=== PATIENT | male | born 1935 | race Caucasian/White ===

== ENCOUNTER → 2021-06-19 08:40 | Outpatient (BNVA) | payer MEDICARE, SELFPAY | PROVIDERS: PCP Nurse Practitioner Family; Visit Provider Urology | DX: N40.0 Benign prostatic hyperplasia without lower urinary tract symptoms (principal); R97.20 Elevated prostate specific antigen [PSA]; R35.1 Nocturia | CPT/HCPCS: 51798; 99212 ==

== ENCOUNTER 2021-09-29 10:52 | Outpatient (REF) | payer MEDICARE, SELFPAY ==
--- NOTE | ~2021-09-29 | US_ITS ---
EXAMINATION: US PELVIS LIMITED (BLADDER) CLINICAL INFORMATION: Poor urinary stream. COMPARISON: CT abdomen and pelvis 05/02/2013 TECHNIQUE: Real-time imaging of the bladder. FINDINGS: BLADDER: Well distended and normal. Bilateral ureteral jets are demonstrated. Prevoid bladder volume is 161.7 mL. Postvoid bladder volume is 8.5 mL. PROSTATE: The prostate is lobulated and slightly heterogeneous with volume measuring 42.0 mL. US/US bladder IMPRESSION: Heterogeneous prostate gland with mild enlargement. Small postvoid residual bladder volume measuring 8.5 mL.
== END 2021-09-29 10:53 | disposition home or self-care (01) ==
LOC: HO.US 10:52
PROVIDERS: PCP Nurse Practitioner Family; Visit Provider Urology
DX: R39.12 Poor urinary stream (principal); N40.0 Benign prostatic hyperplasia without lower urinary tract symptoms
CPT/HCPCS: 76857

== ENCOUNTER 2021-10-12 11:36 | Outpatient (REF) | payer MEDICARE, SELFPAY ==
[2021-10-12 14:24] LABS: PSA,Total (Free>4and<10) 5.09 ng/mL (0.00-4.00)
[2021-10-13 12:41] LABS: Free Prostate Spec Ag 0.8 ng/mL; Percent Free Prostate Spec Ag 17 % (calc) (>25); Prostate Specific Ag Total 4.7 ng/mL (< OR = 4.0)
== END 2021-10-12 11:37 | disposition home or self-care (01) ==
LOC: HO.10HDL 11:36
PROVIDERS: Visit Provider Urology
DX: N40.0 Benign prostatic hyperplasia without lower urinary tract symptoms (principal); Z12.5 Encounter for screening for malignant neoplasm of prostate
CPT/HCPCS: 36415; 84153; 84154

== ENCOUNTER → 2021-10-20 08:16 | Outpatient (BNVA) | payer MEDICARE, SELFPAY | PROVIDERS: PCP Nurse Practitioner Family; Visit Provider Urology | DX: R97.20 Elevated prostate specific antigen [PSA] (principal); R35.1 Nocturia; N40.0 Benign prostatic hyperplasia without lower urinary tract symptoms | CPT/HCPCS: Q3014 ==

== ENCOUNTER → 2022-04-20 08:04 | Outpatient (BNVA) | payer MEDICARE, OTHER, SELFPAY | PROVIDERS: PCP Nurse Practitioner Family; Visit Provider Urology | DX: N40.1 Benign prostatic hyperplasia with lower urinary tract symptoms (principal); N13.8 Other obstructive and reflux uropathy; R97.20 Elevated prostate specific antigen [PSA]; N52.9 Male erectile dysfunction, unspecified; Z79.899 Other long term (current) drug therapy | CPT/HCPCS: Q3014 ==

== ENCOUNTER 2022-10-08 11:30 | Outpatient (REF) | payer MEDICARE, OTHER, SELFPAY ==
[2022-10-08 14:30] LABS: PSA,Total (Free>4and<10) 3.21 ng/mL (0.00-4.00)
== END 2022-10-08 11:31 | disposition home or self-care (01) ==
LOC: HO.10HDL 11:30
PROVIDERS: Visit Provider Urology
DX: Z12.5 Encounter for screening for malignant neoplasm of prostate (principal); N13.8 Other obstructive and reflux uropathy; N40.1 Benign prostatic hyperplasia with lower urinary tract symptoms; R97.20 Elevated prostate specific antigen [PSA]
CPT/HCPCS: 36415; 84153

== ENCOUNTER → 2022-10-19 10:00 | Outpatient (BNVA) | payer MEDICARE, OTHER, SELFPAY | PROVIDERS: PCP Nurse Practitioner Family; Visit Provider Urology | DX: R97.20 Elevated prostate specific antigen [PSA] (principal); N40.1 Benign prostatic hyperplasia with lower urinary tract symptoms; R35.1 Nocturia; N52.9 Male erectile dysfunction, unspecified; Z79.899 Other long term (current) drug therapy | CPT/HCPCS: Q3014 ==

== ENCOUNTER 2023-04-18 11:16 | Outpatient (REF) | payer MEDICARE, OTHER, SELFPAY ==
[2023-04-18 12:58] LABS: Prostate Specific Antigen 3.82 ng/mL (<0.05-4.0)
== END 2023-04-18 11:17 | disposition home or self-care (01) ==
LOC: HO.LAB 11:16
PROVIDERS: PCP Nurse Practitioner Family; Visit Provider Urology
DX: R97.20 Elevated prostate specific antigen [PSA] (principal); Z12.5 Encounter for screening for malignant neoplasm of prostate
CPT/HCPCS: 36415; 84153

== ENCOUNTER → 2023-04-20 15:31 | Outpatient (BNVA) | payer MEDICARE, OTHER, SELFPAY | PROVIDERS: PCP Nurse Practitioner Family; Visit Provider Urology | DX: N40.0 Benign prostatic hyperplasia without lower urinary tract symptoms (principal); N52.9 Male erectile dysfunction, unspecified; R97.20 Elevated prostate specific antigen [PSA]; R35.1 Nocturia; Z79.899 Other long term (current) drug therapy | CPT/HCPCS: 51798; 99212 ==

== ENCOUNTER 2023-10-03 11:57 | Outpatient (REF) | payer MEDICARE, OTHER, SELFPAY ==
[2023-10-03 14:28] LABS: Prostate Specific Antigen 3.92 ng/mL (<0.05-4.0)
== END 2023-10-03 11:58 | disposition home or self-care (01) ==
LOC: HO.10HDL 11:57
PROVIDERS: Visit Provider Urology
DX: N40.0 Benign prostatic hyperplasia without lower urinary tract symptoms (principal); Z12.5 Encounter for screening for malignant neoplasm of prostate
CPT/HCPCS: 36415; 84153

== ENCOUNTER 2023-10-20 08:30 | Outpatient (AMB) | payer MEDICARE, OTHER, SELFPAY ==
--- NOTE | 2023-10-20 08:32 | MHC.OFFVIS ---
Intake Intake Visit Reasons: 6m/PSA(set) Intake Note: Patient is Present for Telephone Follow Up PSA Urology Med: Finasteride, Tadalafil Antibiotic Allergy: None Blood Thinner: None Allergies No Known Allergies Allergy (Verified 10/19/22 10:01) Medication List - Last Reconciled 10/20/23 by Juan Camilo MD finasteride 5 mg PO DAILY 90 days hydrochlorothiazide 12.5 mg PO DAILY ketorolac 0.5% 1 drp ophthalmic-Right BID lisinopril 40 mg PO DAILY simvastatin 20 mg PO BEDTIME sodium fluoride-pot nitrate 1.1-5 % (PreviDent 5000 Sensitive) PO DIRECTED tadalafil (Cialis) 20 mg PO DAILY PRN timolol maleate 0.5% 0 drps ophthalmic (eye) HPI HPI Comments History of Present Illness Details Jose is a pleasant male. He is a patient of Dr. Mcarthur. He is seen for the following urologic conditions - BPH - erectile dysfunction - elevated PSA Telemedicine Evaluation 15 min Consultation [employer] Video attempted Continue good response to finasteride Minimal side effects at 3 times per week PSA continue slow fall on Tuesday, Tuesday, Tuesday Slow PSA rise from 3.2-3.8 which is not unexpected WILLIAM with thrombosed hemorrhoid and known large prostate 6 month follow-up PSA BPH Ongoing known large prostate Prior laser procedure on prostate WILLIAM 3+ PSA 05/26 5.4 F 18% - had historically been in range between 5 and 6.2 - 05/27 7.6, 10/27 4.7 17%, 04/28 4.1, 10/28 3.2, 04/29 3.8, 09/29 3.9 Discussion regarding elevated PSA BPH versus neoplasm Continue finasteride with PSA every 6 months Erectile dysfunction Responsive to Cialis PFSH Medical History High cholesterol Detached retina, right Nocturia BPH (benign prostatic hyperplasia) Elevated PSA Surgical History History of surgery Social History Patient Tobacco Use Status: Never used Tobacco Review of Systems Const All systems reviewed & are unremarkable except as noted in HPI and below Reports no additional complaints Resp Reports no additional complaints GI Reports no additional complaints Reports as per HPI Musc Reports no additional complaints Physical Exam Telemedicine evaluation Appropriate responses Regular breathing rate and rhythm HEENT Head: Yes normal to inspection Ears: hearing grossly normal bilaterally Eyes General: appearance normal, both eyes and all related structures Neck Neck: Yes normal visual inspection Chest Chest palpation & inspection: normal inspection of the chest Resp Effort & Inspection: normal respiratory effort and able to speak in complete sentences Assessment & Plan Assessment & Plan (1) Elevated PSA: Code(s): R97.20 - Elevated prostate specific antigen [PSA] (2) BPH (benign prostatic hyperplasia): Code(s): N40.0 - Benign prostatic hyperplasia without lower urinary tract symptoms Plan Six month follow-up PSA office Orders: Orders Prostate Specific Antigen 6 Months R97.20 - Elevated prostate specific antigen [PSA] Medications: Refilled finasteride 5 mg PO DAILY 90 tabs 2RF 90 days N13.8 - Other obstructive and reflux uropathy, N40.0 - Benign prostatic hyperplasia without lower urinary tract symptoms, N40.1 - Benign prostatic hyperplasia with lower urinary tract symptoms, R33.9 - Retention of urine, unspecified Patient Instructions: Imaging studies, laboratory and physical exam results were discussed and reviewed in detail. No major barriers to patient understanding were identified. An opportunity to ask questions regarding the treatment plan was provided. All questions were answered. The patient expressed understanding and agreement with the above treatment plan. The patient is aware they should contact our office by phone for worsening of their current condition or the appearance of new urologic symptoms. Compliance is encouraged with any medications and followup testing that is ordered. It is a privilege to participate in the urologic care of your patient. If you have any questions or concerns regarding treatment for the above conditions, or other urologic issues, please do not hesitate to contact me. The office telephone contact is [phone]. This note is constructed using voice recognition software. While every effort has been made to ensure accuracy borough coordinator errors may have been included. Yours sincerely, Dr Juan Camilo MD, [facility] - Urology Providers of Expert, Compassionate Care for the Genitourinary System Telehealth Telehealth Location of provider rendering services: practice address Location of patient: address on file Patient Identification confirmed using: Name, : Yes Telehealth method: video Patient verbally consented to treatment: Yes Patient verbally consented to billing insurance company: Yes Patient informed of any privacy concerns related to visit: Yes Coding Level of Care Code Tele Est Pt Level 3 (48598) Diagnoses Elevated PSA R97.20 BPH (benign prostatic hyperplasia) N40.0
== END 2023-10-20 08:57 | disposition home or self-care (01) ==
LOC: HO.HUSH 08:30
PROVIDERS: PCP Nurse Practitioner Family; Visit Provider Urology
DX: R97.20 Elevated prostate specific antigen [PSA] (principal); N40.0 Benign prostatic hyperplasia without lower urinary tract symptoms
CPT/HCPCS: 99213

== ENCOUNTER → 2023-10-20 08:30 | Outpatient (BNVA) | payer MEDICARE, OTHER, SELFPAY | PROVIDERS: PCP Nurse Practitioner Family; Visit Provider Urology ==

== ENCOUNTER 2024-04-16 09:48 | Outpatient (REF) | payer MEDICARE, OTHER, SELFPAY | END 2024-04-16 09:49 | disposition home or self-care (01) | LOC: HO.LAB 09:48 | PROVIDERS: PCP Nurse Practitioner Family; Visit Provider Urology | DX: R97.20 Elevated prostate specific antigen [PSA] (principal); Z12.5 Encounter for screening for malignant neoplasm of prostate | CPT/HCPCS: 36415; 84153 ==

== ENCOUNTER 2024-04-20 10:28 | Outpatient (AMB) | payer MEDICARE, OTHER, SELFPAY ==
--- NOTE | 2024-04-20 11:08 | A.OFFVIS_ITS ---
Intake Visit Reasons: 6M PSA(set) Intake Note: Patient is Present for PVR/PSA Urology Med:Finasteride, Tadalafil Antibiotic Allergy:None Blood Thinner: None Last PVR: 31 Todays PVR: 30 Allergies No Known Allergies Allergy (Verified 04/20/24 11:08) HPI Comments Details: Jose is a pleasant male. He is a patient of Dr. Mcarthur. He is seen for the following urologic conditions - BPH - erectile dysfunction - elevated PSA Continue good response to finasteride Minimal side effects at 3 times per week PSA continue slow fall on Tuesday, Tuesday, Tuesday PSA 2.7 Continue surveillance BPH Ongoing known large prostate Prior laser procedure on prostate WILLIAM 3+ PSA 05/26 5.4 F 18% - had historically been in range between 5 and 6.2 - 05/27 7.6, 10/27 4.7 17%, 04/28 4.1, 10/28 3.2, 04/29 3.8, 09/29 3.9, 04/30 2.7 Discussion regarding elevated PSA BPH versus neoplasm Continue finasteride with PSA every 6 months Erectile dysfunction Responsive to Cialis - on demand PFSH Medical History High cholesterol Detached retina, right Nocturia BPH (benign prostatic hyperplasia) Elevated PSA Surgical History History of surgery Social History Patient Tobacco Use Status: Never used Tobacco Review of Systems Const Denies chills and Denies fever(s) Card Reports no additional complaints and Denies syncope Resp Denies cough GI Denies abdominal pain and Denies heartburn Reports as per HPI and Denies change in libido Neuro Denies syncope Psych Denies change in libido Endo Denies change in libido Physical Exam Const General: cooperative, healthy appearing, comfortable and no acute distress Orientation/consciousness: patient oriented x3 HEENT Face and sinus: Yes normal facial exam Mouth: moist mucous membranes Neck Neck: Yes normal visual inspection, Yes full ROM and Yes trachea midline Chest Chest palpation & inspection: normal inspection of the chest Resp Effort & Inspection: normal respiratory effort, able to speak in complete sentences and no respiratory distress GI Inspection: Yes normal to inspection Back/Spine/Pelvis Cervical Spine: normal cervical lordosis Thoracic/Lumbar Spine: thoracic and lumbar spine normal to inspection Skin General skin exam: no rashes or lesions noted Neuro General: patient oriented x3, gait normal, tone normal and moves all extremities Extrem General: Yes normal to inspection and Yes capillary refill normal Office Procedures Post Void Residual Post Residual Void Post Void Residual (PVR): 30 [id number] Void Residual by ultrasound Assessment & Plan Assessment & Plan (1) Erectile dysfunction: Code(s): N52.9 - Male erectile dysfunction, unspecified Category: Medical (2) Nocturia: Code(s): R35.1 - Nocturia Category: Medical (3) BPH (benign prostatic hyperplasia): Code(s): N40.0 - Benign prostatic hyperplasia without lower urinary tract symptoms Category: Medical Plan Six-month follow-up Orders: Orders AMB Post Void Residual by ultrasound 04/20/24 N40.0 - Benign prostatic hyperplasia without lower urinary tract symptoms Prostate Specific Antigen 364 Days N40.0 - Benign prostatic hyperplasia without lower urinary tract symptoms Patient Instructions: Imaging studies, laboratory and physical exam results were discussed and reviewed in detail. No major barriers to patient understanding were identified. An opportunity to ask questions regarding the treatment plan was provided. All questions were answered. The patient expressed understanding and agreement with the above treatment plan. The patient is aware they should contact our office by phone for worsening of their current condition or the appearance of new urologic symptoms. Compliance is encouraged with any medications and followup testing that is ordered. It is a privilege to participate in the urologic care of your patient. If you have any questions or concerns regarding treatment for the above conditions, or other urologic issues, please do not hesitate to contact me. The office telephone contact is [phone]. This note is constructed using voice recognition software. While every effort has been made to ensure accuracy resource specialist errors may have been included. Yours sincerely, Dr Juan Camilo MD, [facility] - Urology Providers of Expert, Compassionate Care for the Genitourinary System Coding Level of Care Code Est Pt Level 3 (05473) Diagnoses Erectile dysfunction N52.9 Nocturia R35.1 BPH (benign prostatic hyperplasia) N40.0 CPT Codes Post Residual Void - PVR CPT Code: 10011-Ybyk Void Residual by ultrasound ([id number])
== END 2024-04-20 11:50 | disposition home or self-care (01) ==
PROVIDERS: PCP Nurse Practitioner Family; Visit Provider Urology
DX: N52.9 Male erectile dysfunction, unspecified (principal); R35.1 Nocturia; N40.0 Benign prostatic hyperplasia without lower urinary tract symptoms
CPT/HCPCS: 99213

== ENCOUNTER → 2024-04-20 10:28 | Outpatient (BNVA) | payer MEDICARE, OTHER, SELFPAY | PROVIDERS: PCP Nurse Practitioner Family; Visit Provider Urology | DX: N40.1 Benign prostatic hyperplasia with lower urinary tract symptoms (principal); R35.1 Nocturia; N52.9 Male erectile dysfunction, unspecified | CPT/HCPCS: 51798; 99212 ==

== ENCOUNTER 2025-04-09 07:06 | Outpatient (REF) | payer MEDICARE, SELFPAY ==
[2025-04-09 08:32] LABS: Prostate Specific Antigen 3.98 ng/mL (<0.05-4.0)
== END 2025-04-09 07:07 | disposition home or self-care (01) ==
LOC: HO.LAB 07:06
PROVIDERS: PCP Nurse Practitioner Family; Visit Provider Urology
DX: N40.0 Benign prostatic hyperplasia without lower urinary tract symptoms (principal); Z12.5 Encounter for screening for malignant neoplasm of prostate
CPT/HCPCS: 36415; 84153

== ENCOUNTER 2025-04-18 10:55 | Outpatient (AMB) | payer MEDICARE, SELFPAY ==
--- NOTE | 2025-04-18 11:06 | A.OFFVIS_ITS ---
Intake Visit Reasons: 1y/PSA Intake Note: Patient is Present for 1Y/PSA Urology Med:Finasteride, Tadalafil Antibiotic Allergy:None Blood Thinner: None PVR: 30ML'S TODAY'S PVR: Button Bradder Required: No Allergies No Known Allergies Allergy (Verified 04/18/25 11:07) HPI Comments Details: Jose is a pleasant male. He is a patient of Dr. Mcarthur. He is seen for the following urologic conditions - BPH - erectile dysfunction - elevated PSA Continue good response to finasteride Minimal side effects at 3 times per week PSA continue slow fall on Tuesday, Tuesday, Tuesday PSA slight rise to 4.0 Continue surveillance Continues with tadalafil on demand Right inguinal hernia Referral general surgery 3+ WILLIAM Repeat PSA 6 months tele BPH Ongoing known large prostate Prior laser procedure on prostate WILLIAM 3+ PSA 05/26 5.4 F 18% - had historically been in range between 5 and 6.2 - 05/27 7.6, 10/27 4.7 17%, 04/28 4.1, 10/28 3.2, 04/29 3.8, 09/29 3.9, 04/30 2.7, 05/01 4.0 Discussion regarding elevated PSA BPH versus neoplasm Continue finasteride with PSA every 6 months Erectile dysfunction Responsive to Cialis - on demand [facility] Medical History High cholesterol Detached retina, right Nocturia BPH (benign prostatic hyperplasia) Elevated PSA Surgical History History of surgery Social History Patient Tobacco Use Status: Never used Tobacco Review of Systems Const Denies chills and Denies fever(s) Card Reports no additional complaints and Denies syncope Resp Denies cough GI Denies abdominal pain and Denies heartburn Reports as per HPI and Denies change in libido Neuro Denies syncope Psych Denies change in libido Endo Denies change in libido Physical Exam Const General: cooperative, healthy appearing, comfortable and no acute distress Orientation/consciousness: patient oriented x3 HEENT Face and sinus: Yes normal facial exam Mouth: moist mucous membranes Neck Neck: Yes normal visual inspection, Yes full ROM and Yes trachea midline Chest Chest palpation & inspection: normal inspection of the chest Resp Effort & Inspection: normal respiratory effort, able to speak in complete sentences and no respiratory distress GI Inspection: Yes normal to inspection Rectal Exam - Male: Yes normal sphincter tone and Yes prostate normal Male General Exam: Yes normal external exam Penis: normal penis and circumcised Meatus: meatus normal Scrotum: scrotum normal Testes: Testes normal Back/Spine/Pelvis Cervical Spine: normal cervical lordosis Thoracic/Lumbar Spine: thoracic and lumbar spine normal to inspection Skin General skin exam: no rashes or lesions noted Neuro General: patient oriented x3, gait normal, tone normal and moves all extremities Extrem General: Yes normal to inspection and Yes capillary refill normal Assessment & Plan Assessment & Plan (1) Elevated PSA: Code(s): R97.20 - Elevated prostate specific antigen [PSA] Category: Medical (2) BPH (benign prostatic hyperplasia): Code(s): N40.0 - Benign prostatic hyperplasia without lower urinary tract symptoms Category: Medical (3) Inguinal hernia of right side without obstruction or gangrene: Code(s): K40.90 - Unilateral inguinal hernia, without obstruction or gangrene, not specified as recurrent Category: Medical Plan Six-month follow-up PSA Orders: Orders PSA,Total (Free>4and<10) 6 Months K40.90 - Unilateral inguinal hernia, without obstruction or gangrene, not specified as recurrent Referrals General Surgery Referral K40.90 - Unilateral inguinal hernia, without obstruction or gangrene, not specified as recurrent Patient Instructions: This note is constructed using voice recognition software. While every effort has been made to ensure accuracy precinct commanding officer errors may have been included. Imaging studies, laboratory and physical exam results were discussed and reviewed in detail. No major barriers to patient understanding were identified. An opportunity to ask questions regarding the treatment plan was provided. All questions were answered. The patient expressed understanding and agreement with the above treatment plan. The patient is aware they should contact our office by phone for worsening of their current condition or the appearance of new urologic symptoms. Compliance is encouraged with any medications and followup testing that is ordered. It is a privilege to participate in the urologic care of your patient. If you have any questions or concerns regarding treatment for the above conditions, or other urologic issues, please do not hesitate to contact me. The office telephone contact is [phone]. Sincerely, Dr Juan Camilo MD, [facility] - Urology Compassionate Specialist Care for the Genitourinary System Coding Level of Care Code Est Pt Level 3 (59377) Complex EM visit Add On G2211 Diagnoses Elevated PSA R97.20 BPH (benign prostatic hyperplasia) N40.0 Inguinal hernia of right side without obstruction or gangrene K40.90
--- OUTSIDE RECORDS SUMMARY | 2025-04-18 12:53 | XMS_ITS | Clinical Summary ---
Author Organization [facility] Address [address] [place] [address] Care Team Providers Care Overlock Elastic Attacher Name Role Phone Mikaela Mcarthur APRN Primary Care Provider [phone] Social History Tobacco Use Types Packs/Day Years Used Date Smoking Tobacco: Never Assessed Sex and Gender Information Value Date Recorded Sex Assigned at Not on file Legal Sex Male 7:06 PM EST Gender Identity Not on file Sexual Orientation Not on file Plan of Treatment Health Maintenance Due Date Last Done Comments DTaP/Tdap/Td Vaccines (1 - Tdap) 1954 Pneumococcal Vaccines 50+ (1 of 1 - PCV) 1987 Zoster (Shingles) Vaccine (1 of 2) 1987 RSV Vaccine 60 years and old er and Patients (1 - 1-dose 75+ series) 2012 COVID-19 Vaccine ( - 2023-2 5 season) 2024 Influenza Vaccine 06/07/2025 Hepatitis B Vaccines Aged Out No long er eligible based on patient's age to complete this topic Insurance [facility] MEDICARE Care Teams Overlock Elastic Attacher Relationship Specialty Start Date End Date Mikaela Mcarthur APRN [address] [place] [address] PCP - General Family Medicine 03/21/23
== END 2025-04-18 11:42 | disposition home or self-care (01) ==
LOC: HO.HUSH 10:55
PROVIDERS: PCP Nurse Practitioner Family; Visit Provider Urology
DX: R97.20 Elevated prostate specific antigen [PSA] (principal); N40.0 Benign prostatic hyperplasia without lower urinary tract symptoms; K40.90 Unilateral inguinal hernia, without obstruction or gangrene, not specified as recurrent
CPT/HCPCS: 99213; G2211

== ENCOUNTER → 2025-04-18 10:55 | Outpatient (BNVA) | payer MEDICARE, SELFPAY | PROVIDERS: PCP Nurse Practitioner Family; Visit Provider Urology | DX: R97.20 Elevated prostate specific antigen [PSA] (principal); N40.0 Benign prostatic hyperplasia without lower urinary tract symptoms; K40.90 Unilateral inguinal hernia, without obstruction or gangrene, not specified as recurrent | CPT/HCPCS: 99212 ==

== ENCOUNTER 2025-05-30 09:12 | Outpatient (AMB) | payer MEDICARE, SELFPAY ==
--- NOTE | 2025-05-30 09:30 | MHC.OFFVIS ---
Vital Signs 05/30/25 09:36 Height 5 ft 8 in Weight 148 lb 4 oz BMI 22.5 BP 172/72 H Blood Pressure Location Lt brachial Position Sitting Pulse 77 Intake Visit Reasons: ingunial hernia Intake Note: Patient is seen in office for evaluation of a right inguinal hernia. Pt c/o: right groin feels swollen for the past 2 weeks, denies any other concerns, no prior surgeries in the area ref. Dr Camilo Imaging: Zero [employer] Assistant Required: No Accompanied by: Self / Same As Patient Allergies No Known Allergies Allergy (Verified 05/30/25 09:35) Medication List - Last Reconciled 05/30/25 by Dany Colon MD finasteride 5 mg PO DAILY 90 days hydrochlorothiazide 12.5 mg PO DAILY ketorolac 0.5% 1 drp ophthalmic-Right BID lisinopril 40 mg PO DAILY simvastatin 20 mg PO BEDTIME tadalafil (Cialis) 20 mg PO DAILY PRN timolol maleate 0.5% 0 drps ophthalmic (eye) HPI Comments Details: 89-year-old male patient presenting for evaluation of a right inguinal hernia. He 1st noted the lump approximately 2 weeks ago while looking in the mirror. He denies any inciting event but does note the lump to increase in size with lifting and straining. The hernia does reduce easily with light pressure and when laying in bed. He denies any previous history of hernias or hernia surgery. He denies any associated intestinal symptoms including nausea, vomiting, or changes in his bowel habits. He presents today to discuss treatment options for this hernia. [facility] Medical History High cholesterol Detached retina, right Nocturia BPH (benign prostatic hyperplasia) Elevated PSA Surgical History History of surgery Social History Patient Tobacco Use Status: Never used Tobacco Review of Systems Const All systems reviewed & are unremarkable except as noted in HPI and below Denies chills, Denies fever(s), Denies headache(s), Denies poor appetite and Denies weakness ENT Denies headache(s) Card Denies chest pain, Denies irregular heart rhythm, Denies palpitations and Denies dyspnea Resp Denies cough, Denies excessive phlegm production and Denies dyspnea GI Denies abdominal pain, Denies bloating, Denies change in bowel habits, Denies constipation, Denies heartburn, Denies diarrhea, Denies nausea and Denies vomiting Denies difficulty urinating and Denies urinary frequency Musc Denies back pain, Denies muscle weakness and Denies numbness Skin/Breast Denies changing lesions and Denies unusual bruising Neuro Denies headache(s), Denies numbness, Denies paresthesias and Denies weakness Psych Denies anxiety and Denies depression Endo Denies palpitations César/Lymph Denies lymphadenopathy Physical Exam Vital Signs: Last Vital Signs Pulse 77 05/30/25 09:36 BP 172/72 H 05/30/25 09:36 BMI result Body Mass Index 22.5 Const General: cooperative and no acute distress Nutritional Appearance: well nourished Orientation/consciousness: patient oriented x3 Limitations: no limitations HEENT Head: Yes normocephalic and Yes atraumatic Ears: hearing grossly normal bilaterally Resp Effort & Inspection: normal respiratory effort, no audible wheezes, no cough and no respiratory distress Cardio Jugular venous distension: no JVD GI Other: Moderate size right inguinal hernia noted in the standing position which increases in size with Valsalva maneuvers but easily reduces with light pressure. No tenderness is elicited with palpation. No left inguinal hernia could be identified. Inspection: Yes normal to inspection Palpation (GI): Soft to palpation, nontender, no guarding and not rigid Skin Other: Warm, dry, no rash Neuro General: patient oriented x3 Extrem General: Yes no clubbing, cyanosis or edema Assessment & Plan Assessment & Plan (1) Inguinal hernia of right side without obstruction or gangrene: Code(s): K40.90 - Unilateral inguinal hernia, without obstruction or gangrene, not specified as recurrent Category: Medical Plan 82-year-old male patient presenting with a reducible right inguinal hernia of moderate size, probable indirect inguinal hernia. We discussed the surgical options including nonoperative management verses repair with mesh along with the relative risks and benefits. After discussion of the procedure, risks and alternatives, he consents to a repair of the right inguinal hernia with mesh. This will be scheduled at his convenience as a short-stay surgery. We discussed postoperative management including having somebody stay with him for the 1st 24 hours after surgery and limiting his lifting to 10 lb for the 1st month after surgery. He expressed understanding and agrees with the plan. Coding Level of Care Code New Pt Level 4 (96273) Diagnoses Inguinal hernia of right side without obstruction or gangrene K40.90
[2025-05-30 09:36] VITALS: BP 172/72; PULSE 77; BMI 22.5
--- OUTSIDE RECORDS SUMMARY | 2025-05-30 09:42 | XMS_ITS | Clinical Summary ---
Author Organization [facility] Address [address] [place] [address] Care Team Providers Care Crystalizer Name Role Phone Mikaela Mcarthur APRN Primary Care Provider [phone] Social History Tobacco Use Types Packs/Day Years [...] patient's age to complete this topic Insurance [facility] MEDICARE Care Teams Crystalizer Relationship Specialty Start Date End Date Mikaela Mcarthur APRN [address] [place] [address] PCP - General Family Medicine 03/21/23
--- OUTSIDE RECORDS SUMMARY | 2025-05-30 09:42 | XMS_ITS | Clinical Summary ---
Author Organization [facility] Address [address] [place] [phone] Phone Care Team Providers Care Manager Corporate Strategy Name Role Phone Mikaela Mcarthur NP Primary Care Provide r Allergies No known active allergies Medications lisinopril (PRINIVIL,ZESTR IL) 40 MG tablet TK 1 T PO QD 0 04/13/2017 Active simvastatin (ZOCOR) 20 MG tablet TK 1 T PO QD WITH SUPPER 1 04/21/2017 Active hydroCHLOROthia zide (HYDRODIURIL) 25 MG tablet TK 1 T PO QD 0 11/12/2018 Act casey ketorolac (ACULAR) 0.5 % ophthalmic solution INSTILL 1 DROP INTO RIGHT EYE TWICE A DAY 03/27/2021 Active finasteride (PROSCAR) 5 mg tablet 06/19/2021 Active Active Problems Problem Noted Date Diagnosed Date Epiretinal membrane (ERM) of right eye 9 Posterior vitreous detachment, left 02/05/2019 Retinal detachment 07/19/2016 Overview (11/27/2016): Retinal detachment; OD (06/13/15)(08/01/15) Enlarged prostate 07/19/2016 Overview (11/27/2016): Large prostate Hypertensive disorder 07/19/2016 Overview (11/27/2016): Hypertension Family History Medical History Relation Comments Glaucoma Brother Retinal detachment Brother Relation Status Comments Brother Social History Tobacco Use Types Packs/Day Years Used Date Smoking Tobacco: Never Smokeless Tobacco: Never Education Answer Date Recorded Are you interested in more education? Not on tia e 03/04/2023 Are you concerned about learning? Not on file 03/04/2023 No 03/04/2023 No 03/04/2023 Digital Access Answer Date Recorded No 04/04/2023 No 04/04/2023 No 04/04/2023 Reliable internet access at home? Not on file 04/04/2023 Device with a working camera? Not on file Sex and Gender Information Value Date Recorded Sex Assigned at Not on file Legal Sex Male 11:16 AM EDT Gender Identity Not on file Sexual Orientation Not on file Plan of Treatment Health Maintenance Due Date Last Done Comments Adult Td,Tdap Booster 1937 CREATININE LEVEL 1937 POTASSIUM LEVEL 1937 DEPRESSION SCREENING 1949 PNEUMOCOCCAL VACCINES (50+ years) (1 of 1 - PCV) 1987 ZOSTER VACCINES (1 of 2) 1987 RSV VACCINE (1 - 1-dose 75+ series) 2012 COVID-19 VACCINE (3 - 2023-2 5 season) 2024 01/07/2021, 12/10/2020 HEPATITIS A VACCINES Aged Out No long er eligible based on patient's age to complete this topic HIB VACCINES Aged Out No longer eligi ble based on patient's age to complete this topic MENINGOCOCCAL VACCINES (ACWY) Aged Out No longer eligible based on patient's age to complete this topic MENINGOCOCCAL VACCINES (B) Aged Out N o longer eligible based on patient's age to complete this topic Medical Devices Not on file Insurance MEDICARE PART A & B [facility] MEDICARE SUPPLEMENT Care Teams Manager Corporate Strategy Relationship Specialty Start Date End Date Mikaela Mcarthur NP [address] [place] [address] PCP - General Family Medicine 06/22/21 Additional Source Comments The information contained in this document represents components of the legal health record. It is not the complete legal health record.[facility]
--- OUTSIDE RECORDS SUMMARY | 2025-05-30 09:42 | XMS_ITS ---
Author Name [facility] Organization Unknown Problems Problem Status Onset Date Problem Type Date of Resoluti on Source Perianal lesion active EncounterDiagnosisAct CCT Care Team Organization Name Specialty Phone Email Start Date End Da te Veniti EBEN ISBELL Primary Care 03/25/202304/08 Veniti
== END 2025-05-30 10:02 | disposition home or self-care (01) ==
LOC: HO.HGS 09:13
PROVIDERS: PCP Nurse Practitioner Family; Visit Provider Surgery
DX: K40.90 Unilateral inguinal hernia, without obstruction or gangrene, not specified as recurrent (principal)
CPT/HCPCS: 99204

== ENCOUNTER → 2025-05-30 09:12 | Outpatient (BNVA) | payer MEDICARE, SELFPAY | PROVIDERS: PCP Nurse Practitioner Family; Visit Provider Surgery | DX: K40.90 Unilateral inguinal hernia, without obstruction or gangrene, not specified as recurrent (principal) | CPT/HCPCS: 99202 ==

== ENCOUNTER 2025-10-01 13:11 | Outpatient (REF) | payer MEDICARE, SELFPAY ==
[2025-10-01 14:39] LABS: PSA,Total (Free>4and<10) 4.61 ng/mL (0.00-4.00)
--- OUTSIDE RECORDS SUMMARY | 2025-10-01 16:58 | XMS_ITS | Clinical Summary ---
Author Organization [facility] Address [address] [place] [phone] Phone Care Team Providers Care Machine Tool Operator Name Role Phone Mikaela Mcarthur NP Primary [...] VACCINE (1 - 1-dose 75+ series) 2012 INFLUENZA VACCINE (#1) 2025 06/26/2020 COVID-19 VACCINE (3 - 2024-2 6 season) 2025 01/07/2021, 12/10/2020 HEPATITIS A VACCINES Aged Out [...] file Insurance MEDICARE PART A & B [facility] MEDICARE SUPPLEMENT Care Teams Machine Tool Operator Relationship Specialty Start Date End Date Mikaela Mcarthur NP [address] [place] [address] PCP - General Family Medicine 06/22/21 Additional Source Comments The information contained in this document represents components of the legal health record. It is not the complete legal health record.[facility]
[2025-10-02 13:23] LABS: Free Prostate Spec Ag 1.1 ng/mL; Percent Free Prostate Spec Ag 26 % (calc) (>25)
== END 2025-10-01 13:12 | disposition home or self-care (01) ==
LOC: HO.LAB 13:11
PROVIDERS: PCP Nurse Practitioner Family; Visit Provider Urology
DX: K40.90 Unilateral inguinal hernia, without obstruction or gangrene, not specified as recurrent (principal); Z12.5 Encounter for screening for malignant neoplasm of prostate
CPT/HCPCS: 36415; 84153; 84154